=== PATIENT | male | born 1955 | race Caucasian/White ===

== ENCOUNTER → 2017-05-02 | Outpatient (CLI) | payer OTHER ==
[~2017-05-02] VITALS: Ht 152.4 cm; Wt 83.9 kg
[~2017-05-02] MED LIST: ALTACE10 MG; LIPITOR20 MG; TOPROL XL25 MG
== END | disposition home or self-care (01) ==
LOC: PPHC 10:05
DX: T78.1XXA Other adverse food reactions, not elsewhere classified, initial encounter (principal); X58.XXXA Exposure to other specified factors, initial encounter

== ENCOUNTER 2017-10-19 19:03 | Emergency (ER) | payer OTHER ==
[~2017-10-19] VITALS: Ht 167.6 cm; Wt 82.1 kg
== END 2017-10-19 21:02 | disposition home or self-care (01) ==
LOC: ER 19:03
DX: M79.672 Pain in left foot (principal)

== ENCOUNTER 2021-01-15 07:01 | Outpatient (CLI) | payer OTHER | END 2021-01-15 07:15 | disposition home or self-care (01) | LOC: MRI 07:01 | PROVIDERS: ATTEND Orthopaedic Surgery | DX: M17.11 Unilateral primary osteoarthritis, right knee (principal); S83.281A Other tear of lateral meniscus, current injury, right knee, initial encounter; M25.461 Effusion, right knee; M25.561 Pain in right knee; M25.562 Pain in left knee | CPT/HCPCS: 73718 ==

== ENCOUNTER 2021-09-03 07:11 | Outpatient (CLI) | payer OTHER | END 2021-09-03 07:20 | disposition home or self-care (01) | LOC: RAD 07:11 | PROVIDERS: ATTEND Orthopaedic Surgery | DX: M25.561 Pain in right knee (principal); M25.562 Pain in left knee ==

== ENCOUNTER 2022-11-02 13:41 | Outpatient (CLI) | payer OTHER | END 2022-11-02 13:49 | disposition home or self-care (01) | LOC: RAD 13:41 | PROVIDERS: ATTEND Orthopaedic Surgery | DX: M25.561 Pain in right knee (principal); M25.562 Pain in left knee ==